=== PATIENT | female | born 1975 | race Caucasian/White ===

== ENCOUNTER → 2024-02-26 17:11 | Outpatient (REF) | payer OTHER, SELFPAY | LOC: WDC 17:11 | PROVIDERS: ATTENDING PHYSICIAN Nurse Practitioner Adult Health | DX: Z12.31 Encounter for screening mammogram for malignant neoplasm of breast (principal); Z12.39 Encounter for other screening for malignant neoplasm of breast | CPT/HCPCS: 77063; 77067 ==

== ENCOUNTER → 2024-03-12 13:03 | Outpatient (REF) | payer OTHER, SELFPAY | LOC: HWRAD 13:03 | PROVIDERS: ATTENDING PHYSICIAN Nurse Practitioner Adult Health | DX: M25.511 Pain in right shoulder (principal) | CPT/HCPCS: 73030 ==

== ENCOUNTER → 2025-02-26 16:41 | Outpatient (REF) | payer OTHER, SELFPAY | LOC: WDC 16:41 | PROVIDERS: ATTENDING PHYSICIAN Nurse Practitioner Adult Health | DX: Z12.31 Encounter for screening mammogram for malignant neoplasm of breast (principal) | CPT/HCPCS: 77063; 77067 ==

== ENCOUNTER → 2025-04-01 09:30 | Outpatient (REF) | payer OTHER, SELFPAY | LOC: HWRAD 09:30 | PROVIDERS: ATTENDING PHYSICIAN Nurse Practitioner Adult Health | DX: M25.552 Pain in left hip (principal); M79.675 Pain in left toe(s) | CPT/HCPCS: 73502; 73660 ==

== ENCOUNTER → 2025-06-26 08:26 | Outpatient (REF) | payer OTHER, SELFPAY | LOC: HWRAD 08:26 | PROVIDERS: ATTENDING PHYSICIAN Nurse Practitioner Adult Health | DX: Z78.0 Asymptomatic menopausal state (principal); Z82.62 Family history of osteoporosis | CPT/HCPCS: 77080 ==